=== PATIENT | male | born 1980 | race Caucasian/White ===

== ENCOUNTER 2017-01-14 05:41 | Emergency (ER) | payer OTHER ==
[~2017-01-14] VITALS: Ht 172.7 cm; Wt 73.0 kg
[2017-01-14 07:10] VITALS: BP 130/88
[2017-01-14] MEDS ORDERED: TraMADol HCL 50 MG TABLET PO ONE (07:30)
== END 2017-01-14 07:53 | disposition home or self-care (01) ==
LOC: EMS 05:41
DX: H66.93 Otitis media, unspecified, bilateral (principal)
CPT/HCPCS: 69209; 69210; 99283